=== PATIENT | female | born 1970 | race Caucasian/White ===

== ENCOUNTER 2017-12-02 14:25 | Emergency (ER) | payer OTHER ==
[~2017-12-02] VITALS: Ht 160 cm; Wt 57.1 kg
[~2017-12-02 14:25] MED LIST: IRON325 MG PO; LEXAPRO20 MG PO; MINASTRIN 24 F1 EACH PO; XANAX0.5 MG PO
[2017-12-02] MEDS ORDERED: KEFLEX500 MG PO (15:41)
[2017-12-02 16:37] VITALS: BP 113/59
== END 2017-12-02 16:39 | disposition home or self-care (01) ==
LOC: EME 14:25
DX: N39.0 Urinary tract infection, site not specified (principal); R03.1 Nonspecific low blood-pressure reading; Z87.440 Personal history of urinary (tract) infections; Z79.3 Long term (current) use of hormonal contraceptives
CPT/HCPCS: 99281; 99284; J0696; J7030

== ENCOUNTER 2017-12-23 08:39 | Day surgery (SDC) | payer OTHER ==
[~2017-12-23] VITALS: Ht 160 cm; Wt 54.4 kg
[~2017-12-23 08:39] MED LIST changes: +CRANBERRY 6,001 EACH PO; +KEFLEX500 MG PO
[2017-12-23] MEDS ORDERED: ONDANSETRON HCL8 MG PO (10:32)
[2017-12-23] MEDS ORDERED: DILAUDID4 MG PO (10:32)
[2017-12-23] MEDS ORDERED: COLACE100 MG PO (10:32)
[2017-12-23 12:50] VITALS: BP 105/55
[2017-12-23 12:55] VITALS: BP 108/58
[2017-12-23 14:21] VITALS: BP 109/63
== END 2017-12-23 14:29 | disposition home or self-care (01) ==
LOC: SDC 08:39
PROVIDERS: Surgery
PROC: 0FT44ZZ Resection of Gallbladder, Percutaneous Endoscopic Approach (ICD-10-PCS; principal; 2017-12-23)
DX: K81.1 Chronic cholecystitis (principal); K82.4 Cholesterolosis of gallbladder; R00.1 Bradycardia, unspecified; F41.8 Other specified anxiety disorders
CPT/HCPCS: 81025; 88304; 93005; J0690; J1100; J1170; J1885; J2001; J2405; J2710; J2795; J3475; J7643; Q0175; S0020